=== PATIENT | female | born 1995 | race Caucasian/White ===

== ENCOUNTER 2019-05-02 21:34 | Emergency (ER) | payer BC ==
[~2019-05-02] VITALS: Ht 167.6 cm; Wt 78.9 kg
[~2019-05-02 21:34] MED LIST: Z.0.ADDERALL 20 MG20
[2019-05-02] MEDS ORDERED: PANTOPRAZOLE 40 MG 10ML VIAL IV STA (21:40)
[2019-05-02] MEDS ORDERED: DICYCLOMINE HCL 20 MG/2 ML VIAL IM ONE (21:45)
[2019-05-02 22:07] LABS: BASOPHILS % 0.3 % (0.0-1.0); EOSINOPHILS # (AUTO) 0.2 (0.0-0.4); EOSINOPHILS % 2.5 % (0.0-6.0); HEMATOCRIT 41.8 % (34.2-44.1); HEMOGLOBIN 13.4 g/dL (12.0-16.0); LYMPHOCYTES # (AUTO) 3.1 (1.0-3.2); LYMPHOCYTES % 44.3 % (18.0-39.1); MEAN CORPUSCULAR HEMOGLOBIN 28.2 pg (28-32); MEAN CORPUSCULAR HGB CONC 32.1 g/dL (31-35); MEAN CORPUSCULAR VOLUME 87.8 fL (81-99); MONOCYTES # (AUTO) 0.6 (0.2-0.8); MONOCYTES % 8.6 % (4.4-11.3); NEUTROPHILS # (AUTO) 3.1 (2.1-6.9); PLATELET COUNT 285 x10e3/uL (140-360); RED BLOOD COUNT 4.76 x10e6/uL (3.6-5.1)
[2019-05-02 22:26] LABS: AMYLASE 63 U/L (25-125); LIPASE 51 U/L (8-78)
[2019-05-02 22:28] LABS: ALANINE AMINOTRANSFERASE 23 IU/L (0-55); ALBUMIN 4.1 g/dL (3.5-5.0); ALBUMIN/GLOBULIN RATIO 1.2 (0.8-2.0); ALKALINE PHOSPHATASE 157 IU/L (40-150); BLOOD UREA NITROGEN 18 mg/dL (7-26); BUN/CREATININE RATIO 19 (6-25); CALCIUM 9.8 mg/dL (8.4-10.2); CARBON DIOXIDE 28 mmol/L (22-29); CHLORIDE 103 mmol/L (98-107); CREATININE, SERUM 0.97 mg/dL (0.57-1.11); EST GLOMERULAR FILTRATION RATE > 60 ML/MIN (60-); GLUCOSE 92 mg/dL (74-118); SODIUM 140 mmol/L (136-145)
--- NOTE | 2019-05-02 22:45 | NUR ---
PT TAKEN TO RAD FOR U/S
--- NOTE | 2019-05-02 23:12 | Diagnostic Imaging Report ---
HISTORY: ^RUQ PAIN ^Y TECHNIQUE: Selected images from limited abdominal ultrasound provided for INTERPRETATION: COMPARISON: None. FINDINGS: Pancreas: Visualized portions are normal. No ductal dilatation. Liver: Measures 15.1 cm in sagittal plane. The echotexture is mildly increased. No mass in the visualized portions. Portal Vein: Measures 1.1 cm. Proper directional flow on spectral Doppler interrogation. Intrahepatic bile ducts: Normal Gallbladder: Mildly under distended. No evidence of gallstone or gallbladder wall thickening. CBD: 0.3 cm. Right Kidney: 8.9 cm in greatest length. The echotexture is normal. There is no evidence for mass. There is no collecting system dilatation or evidence of obstruction. No renal calculi evident. No adjacent free fluid or fluid collections. Visualized IVC and aorta are normal. There is no free fluid. IMPRESSION: 1. Mildly underdistended but otherwise normal-appearing gallbladder. No biliary ductal dilatation. 2. Mildly increased hepatic echotexture suggestive of steatosis. Signed by: Dr. Sang Smith MD on 05/02/2019 11:10 PM
[2019-05-02 23:40] LABS: CLARITY,URINE SL CLOUDY (CLEAR); COLOR,URINE YELLOW (YELLOW); LEUKOCYTE ESTERASE ,URINE 1+ (NEGATIVE)
[2019-05-02 23:41] LABS: BILIRUBIN,URINE NEGATIVE (NEGATIVE); KETONES,URINE NEGATIVE (NEGATIVE); NITRITE,URINE NEGATIVE (NEGATIVE); PROTEIN,URINE DIPSTICK NEGATIVE (NEGATIVE); URINE UROBILINOGEN 0.2 mg/dL (0.2 - 1)
[2019-05-02 23:54] LABS: BACTERIA,URINE MANY /HPF; WBC,URINE (MAN) 21-50 /HPF (0-5)
[2019-05-02 23:55] LABS: EPITHELIAL CELLS,URINE FEW /LPF; RENAL EPITHELIAL CELLS,URINE FEW; TRANSITIONAL EPI CELLS,URINE FEW
[2019-05-03] MEDS ORDERED: SODIUM CHLORIDE 0.9% 1000ML 1,000 ML ONE (00:12)
[2019-05-03] MEDS ORDERED: ONDANSETRON HCL INJ 2MG/ML 2ML 2 MG/ML VIAL ONE (00:12)
[2019-05-03] MEDS ORDERED: CEFTRIAXONE SOD 1 GM VIAL ONE (00:12)
[2019-05-03] MEDS ORDERED: ONDANSETRON HCL INJ 2MG/ML 2ML 2 MG/ML VIAL IV STA (00:15)
[2019-05-03] MEDS ORDERED: SODIUM CHLORIDE 0.9% 1000ML 1,000 ML IV ONE (00:15)
== END 2019-05-03 01:45 | disposition home or self-care (01) ==
LOC: ER 21:34
DX: R10.13 Epigastric pain (principal); N30.91 Cystitis, unspecified with hematuria; K29.00 Acute gastritis without bleeding
CPT/HCPCS: 36415; 76705; 80053; 81001; 82150; 83690; 85025; 99283; C9113; J0500; J0696; J2405; J7030